=== PATIENT | male | born 1945 ===

== ENCOUNTER 2023-08-11 12:40 | Day surgery (SDC) | payer MEDICARE ==
[~2023-08-11] VITALS: Ht 177.8 cm; Wt 78.9 kg
[~2023-08-11 12:40] MED LIST: Lactated Ringer's 1,000 ML IV ONE; OMEP20ER PO; propofoL 50 ML IV ONE
[2023-08-11] MEDS ORDERED: Lactated Ringer's 1,000 ML IV ONE (13:30)
[2023-08-11 14:58] VITALS: BP 113/75
== END 2023-08-11 14:36 | disposition home or self-care (01) ==
LOC: ORSCSDS 12:40
PROVIDERS: Specialist
PROC: 0DBK8ZX Excision of Ascending Colon, Via Natural or Artificial Opening Endoscopic, Diagnostic (ICD-10-PCS; principal; 2023-08-11 14:00)
PROC: 0DBL8ZX Excision of Transverse Colon, Via Natural or Artificial Opening Endoscopic, Diagnostic (ICD-10-PCS; principal; 2023-08-11 14:00)
PROC: 0DBN8ZX Excision of Sigmoid Colon, Via Natural or Artificial Opening Endoscopic, Diagnostic (ICD-10-PCS; principal; 2023-08-11 14:00)
DX: Z12.11 Encounter for screening for malignant neoplasm of colon (principal); Z86.010 Personal history of colon polyps; Z80.0 Family history of malignant neoplasm of digestive organs; D12.2 Benign neoplasm of ascending colon; D12.3 Benign neoplasm of transverse colon; D12.5 Benign neoplasm of sigmoid colon; K64.8 Other hemorrhoids; K57.30 Diverticulosis of large intestine without perforation or abscess without bleeding; E78.5 Hyperlipidemia, unspecified; Z79.899 Other long term (current) drug therapy
CPT/HCPCS: 88305; J2704; J7120

== ENCOUNTER → 2024-08-07 | Outpatient (CLI) | payer MEDICARE ==
[~2024-08-07] MED LIST changes: -Lactated Ringer's 1,000 ML IV ONE; -propofoL 50 ML IV ONE
[2024-08-07 18:12] LABS: PSA, %Free 19.5 %; PSA, Free 0.813 ng/mL
== END ==
LOC: LAB 15:53 → LAB SHORT 15:53
PROVIDERS: Nurse Practitioner Family
DX: R97.20 Elevated prostate specific antigen [PSA] (principal)
CPT/HCPCS: 84153; 84154

== ENCOUNTER 2025-02-28 13:46 | Observation (INO) | payer MEDICARE ==
[~2025-02-28] VITALS: Ht 177.8 cm; Wt 81.9 kg
[2025-02-28] VITALS (7 sets, daily range): BP systolic 133–162; BP diastolic 77–97
[2025-02-28 14:20] LABS: BASOPHILS ABSOLUTE AUTO 0.05 K/mm3 (0.00-0.23); BASOPHILS PERCENT AUTO 1 % (0-2); EOSINOPHILS ABSOLUTE AUTO 0.13 K/mm3 (0.00-0.68); EOSINOPHILS PERCENT AUTO 2 % (0-6); Hematocrit 41.1 % (37.0-53.0); Hemoglobin 14.0 g/dL (13.5-17.5); IMMATURE GRAN ABSOLUTE AUTO 0.02 K/mm3 (0.00-0.10); IMMATURE GRAN PERCENT AUTO 0 % (0-1); LYMPHOCYTES ABSOLUTE AUTO 2.48 K/mm3 (0.84-5.20); LYMPHOCYTES PERCENT AUTO 29 % (21-46); MONOCYTES ABSOLUTE AUTO 0.71 K/mm3 (0.16-1.47); MONOCYTES PERCENT AUTO 8 % (4-13); Mean Corpuscular HGB Conc 34.1 g/dL (31.5-36.5); Mean Corpuscular Volume 90 fL (80-100); NEUTROPHILS ABSOLUTE AUTO 5.21 K/mm3 (1.96-9.15); NEUTROPHILS PERCENT AUTO 61 % (41-73); NRBC ABSOLUTE 0.00 K/mm3 (0.00-0.02); NRBC Auto 0.0 /100 WBC (0.0-0.2); Platelet Count 214 K/mm3 (150-400); RDW Coefficient Variation 13.9 % (11.7-14.2); RDW Standard Deviation 45.8 fL (35.1-46.3)
[2025-02-28 14:48] LABS: Alanine Aminotransfer (ALT/SGP 64.0 U/L (12-78); Albumin, Blood 3.8 g/dL (3.4-5.0); Albumin/Globulin Ratio 1.1 (0.8-1.8); Anion Gap 8.0 mmol/L (3-11); Aspartate Aminotrans (AST/SGOT 45.0 U/L (12-37); Bilirubin, Total 0.4 mg/dL (0.1-1.0); Blood Urea Nitrogen 17.0 mg/dL (8-24); CO2, Blood 27.0 mmol/L (21-32); Calcium, Blood 9.4 mg/dL (8.5-10.1); Chloride, Blood 107.0 mmol/L (98-108); Creatinine, Blood 1.27 mg/dL (0.60-1.20); Globulin, Blood 3.4 g/dL (2.2-4.0); Glucose, Blood 106.0 mg/dL (70-99); Potassium, Blood 4.2 mmol/L (3.5-5.5); Sodium, Blood 138.0 mmol/L (136-145); Total Protein, Blood 7.2 g/dL (6.4-8.2)
[2025-02-28 15:53] LABS: Prothrombin Time Results 11.6 Sec (9.7-11.5)
[2025-02-28] MEDS ORDERED: Heparin Sodium 1000 Units/ML 10ML MDV ONE (15:59)
[2025-02-28] MEDS ORDERED: CeFAZolin Sodium 1000 mg Vial ONE (15:59)
[2025-02-28] MEDS ORDERED: NS 1,000 ML IV ONE ×2 (15:59→16:54)
[2025-02-28] MEDS ORDERED: NS 1,000 ML IV SCH (16:25)
[2025-02-28] MEDS ORDERED: Prochlorperazine Edisylate 10 mg Vial IV PRN (16:25)
[2025-02-28] MEDS ORDERED: CeFAZolin Sodium 2,000 MG VIAL ONE (16:53)
[2025-02-28] MEDS ORDERED: NS 100 ML IV ONE (16:54)
[2025-02-28] MEDS ORDERED: Midazolam HCl 1MG / ML 2ML Vial ONE (16:58)
[2025-02-28] MEDS ORDERED: FentaNYL Citrate 50 MCG/ML 2 ML Injection ONE (16:59)
--- NOTE | 2025-02-28 19:01 | NUR ---
1841 ARRIVED TO PCU 18 PT ARRIVED FROM [facility] WITH NEW PACEMAKER IN PLACE. VITALS ALL WNL. PATIENT DENIED ANY SIGNIFICANT PAIN. DRESSING CLEAN DRY AND INTACT.
[2025-03-01 00:54] VITALS: BP 143/80
[2025-03-01] MEDS ORDERED: CeFAZolin Sodium 2,000 MG in NS 100 ML IV SCH (01:00)
[2025-03-01 04:00] VITALS: BP 130/88
--- NOTE | 2025-03-01 06:32 | NUR ---
SHIFT SUMMARY PATIENT ALERT AND ORIENTED X4. MEDICATED PER EMAR FOR PAIN. HAD NO COMPLAINTS OF SHORTNESS OF BREATH. ON ROOM AIR WITH SPO2 >90%. VITAL SIGNS STABLE. NO ACUTE ISSUES NOTED OVERNIGHT. WILL CONTINUE TO MONITOR. CALL LIGHT WITHIN REACH.
[2025-03-01 08:37] VITALS: BP 137/87
--- NOTE | 2025-03-01 10:00 | NUR ---
AM NOTE: PATIENT ALERT AND ORIENTED X4. IND IN ROOM. DENIES PAIN. ON ROOM AIR. VITAL SIGNS STABLE. TELE SHOWING DUAL PACED WITH NEW PACER PLACED YESTERDAY. LEFT CHEST WALL WITH DRESSING C/D/I. DENIES CHEST PAIN/PRESSURE/PALPITATIONS. ARM SLING IN PLACE. THIS RN REVIEWED POST PACER INSTRUCTIONS AND PRECAUTIONS WELL PROVIDED PATIENT WITH WRITTEN INSTRUCTIONS. POST PACER CHEST XRAY AND INTERROGATION COMPLETED. DR. ALVARES AND DR. WEBB TO BEDSIDE THIS AM, THIS RN PRESENT FOR MD ROUNDING. PLANS FOR DISCHARGE TODAY. PATIENT DENIES NEEDS. CALL LIGHT IN REACH.
[2025-03-01 11:35] VITALS: BP 136/86
[2025-03-01] MEDS ORDERED: IBUP600 PO (12:05)
--- NOTE | 2025-03-01 13:34 | NUR ---
DISCHARGE NOTE: NO ACUTE CHANGES, SEE PREVIOUS NOTE. PATIENT AND EDUCATED ON PACER FOLLOW UPS AND WOUND FOLLOW UP. MEDICATIONS. SIGNS AND SYMTPOMS OF WHEN TO RETURN. PACER POST OP INSTRUCTIONS INCLUDING ACTIVITY AND PRECAUTIONS. PATIENT LEFT UNIT WITH PACER MANUAL, PACER CARD, DISCHARGE INSTRUCTIONS AND ALL PERSONAL BELONGINGS.
== END 2025-03-01 13:35 | disposition home or self-care (01) ==
LOC: ER 13:46 → PCU 13:47
PROVIDERS: Emergency Medicine; Student in an Organized Health Care Education/Training Program; ADMIT Internal Medicine
DX: I44.2 Atrioventricular block, complete (principal); K21.9 Gastro-esophageal reflux disease without esophagitis; Z79.899 Other long term (current) drug therapy
CPT/HCPCS: 33208; 36415; 71046; 80053; 83735; 84484; 85025; 85610; 85730; 93005; 93010; 99152; 99153; 99285-25; A9270; C1785; C1894; C1898; J0690; J1644; J2250; J3010; J7030; J7040; Q9967